=== PATIENT | female | born 1930 | race Caucasian/White ===

== ENCOUNTER 2016-09-26 10:38 | Inpatient (IN) | payer OTHER ==
[~2016-09-26] VITALS: Ht 152.4 cm; Wt 49.9 kg
[~2016-09-26 10:38] MED LIST: ADVAIR 100/501 DISK IH; ADVIL200 MG PO; ASCORBIC ACID500 M3 PO; CALTRATE 600 +1 EAC1 PO; CALTRATE 6001 TABLE1 PO; CARDIZEM CD240 MG PO; DUONEB 2.5-0.5 M3 ML IH; ELAVIL10 MG PO; ELIQUIS2.5 MG PO; FOSAMAX70 MG PO; HYDROCHLOROTH12.5 M3 PO; HYDROCHLOROTHIA25 MG PO; HYZAAR 100-21 TABLET PO; LEVETIRACE100 MG/1 M PO; LEVETIRACETAM250 MG PO; LO-DOSE ASPIRIN81 M1 PO; MEVACOR10 MG PO; MEVACOR20 MG PO; MOMETASONE FURO45 GM TP; NORVASC5 MG PO; PLAVIX75 MG PO; PREDNISONE20 MG PO; SYNTHROID75 MCG PO; TENORMIN100 MG PO; VITAMIN D31000 UNI2 PO; XARELTO15 MG PO; ZANTAC150 MG PO; ZITHROMAX Z-PA250 MG PO; ZYLOPRIM100 MG PO
[2016-09-26 12:42] LABS: HEMATOCRIT 34.7 % (36.0-46.0); MCH 29.5 PG (29.0-34.0); MCV 92.3 FL (83-99); MEAN PLAT.VOLUME 10.4 uM^3 (9.5-12.4); PLATELET COUNT 223 K/uL (156-360); RBC DIS.WIDTH-CV 14.8 % (11.8-14.6); RBC DIS.WIDTH-SD 49.7 % (39-53); RED BLOOD COUNT 3.76 M/uL (3.80-5.20); WHITE BLOOD COUNT 13.8 K/uL (4.1-10.2)
[2016-09-26 12:51] LABS: CHLORIDE 99 mEq/L (99-109); POTASSIUM 4.5 mEq/L (3.7-5.4); SODIUM 139 mEq/L (136-147)
[2016-09-26 12:53] LABS: GLUCOSE 113 mg/dL (70-99)
[2016-09-26 12:54] LABS: ANION GAP 11 MEQ/L (2-14)
[2016-09-26 12:56] LABS: GFR ESTIMATE (CALCULATED) 33 mL/min/
[2016-09-26 12:57] LABS: UREA NITROGEN (BUN) 26 mg/dL (9-23)
[2016-09-26 15:08] LABS: TROP-I INTERPRETATION NEGATIVE; TROPONIN-I 0.02 ng/mL (0.0-0.30)
[2016-09-26 17:13] VITALS: BP 184/75
[2016-09-26 19:02] LABS: TROP-I INTERPRETATION NEGATIVE; TROPONIN-I 0.02 ng/mL (0.0-0.30)
[2016-09-26 20:00] VITALS: BP 132/57
[2016-09-26 23:52] VITALS: BP 178/78
[2016-09-27 01:30] LABS: TROP-I INTERPRETATION NEGATIVE; TROPONIN-I < 0.01 ng/mL (0.0-0.30)
[2016-09-27 03:45] VITALS: BP 197/87
[2016-09-27 06:00] VITALS: BP 180/86
[2016-09-27 06:59] LABS: TROP-I INTERPRETATION NEGATIVE; TROPONIN-I 0.01 ng/mL (0.0-0.30)
[2016-09-27 09:57] LABS: HEMATOCRIT 32.4 % (36.0-46.0); MCH 30.1 PG (29.0-34.0); MEAN PLAT.VOLUME 11.5 uM^3 (9.5-12.4); PLATELET COUNT 211 K/uL (156-360); RBC DIS.WIDTH-SD 49.7 % (39-53); RED BLOOD COUNT 3.56 M/uL (3.80-5.20); WHITE BLOOD COUNT 8.8 K/uL (4.1-10.2)
[2016-09-27 10:19] LABS: ANION GAP 13 MEQ/L (2-14); CHLORIDE 98 MEQ/L (99-109); SAMPLE HEMOLYSIS CHECK 0; SAMPLE ICTERIC CHECK 0; SAMPLE LIPEMIA CHECK 0; SODIUM 135 MEQ/L (136-147)
[2016-09-27 10:24] LABS: GFR ESTIMATE (CALCULATED) 41 mL/min/; GLUCOSE 160 mg/dL (70-99); UREA NITROGEN (BUN) 28 mg/dL (9-23)
[2016-09-27] MEDS ORDERED: HYDROCHLOROTHIA25 MG PO (11:09)
[2016-09-27] MEDS ORDERED: KENALOG,ARISTOC80 GM TP (11:10)
[2016-09-27] MEDS ORDERED: DILTIAZEM 24HR120 MG PO (11:15)
[2016-09-27 11:54] VITALS: BP 172/79
[2016-09-27 15:44] VITALS: BP 141/69
[2016-09-27 19:00] VITALS: BP 161/73
[2016-09-27 23:34] VITALS: BP 165/70
[2016-09-28 06:48] LABS: EOSINOPHIL (%) 0 % (0-5); HEMATOCRIT 29.8 % (36.0-46.0); IMMATURE GRANULOCYTE (%) 0.9 % (0.0-0.7); IMMATURE GRANULOCYTE COUNT 0.1 K/uL; INSTRUMENT ABS NEUTROPHIL CT 9.6 K/uL; LYMPHOCYTE COUNT 0.7 K/uL (1.0-2.8); MCH 31.1 PG (29.0-34.0); MCHC 34.2 G/DL (30.0-36.0); MCV 90.9 FL (83-99); MEAN PLAT.VOLUME 10.9 uM^3 (9.5-12.4); MONOCYTE (%) 2.6 % (3-12); MONOCYTE COUNT 0.3 K/uL (0-0.8); NEUTROPHIL (%) 89.8 % (45-76); NEUTROPHIL COUNT 9.6 K/uL (1.8-6.4); PLATELET COUNT 208 K/uL (156-360); RBC DIS.WIDTH-CV 14.6 % (11.8-14.6); RBC DIS.WIDTH-SD 48.6 % (39-53); RED BLOOD COUNT 3.28 M/uL (3.80-5.20); WHITE BLOOD COUNT 10.7 K/uL (4.1-10.2)
[2016-09-28 07:09] LABS: ANION GAP 10 MEQ/L (2-14); CHLORIDE 99 MEQ/L (99-109); GFR ESTIMATE (CALCULATED) 35 mL/min/; GLUCOSE 139 mg/dL (70-99); POTASSIUM 4.4 MEQ/L (3.7-5.4); SAMPLE HEMOLYSIS CHECK 0; SAMPLE ICTERIC CHECK 0; SAMPLE LIPEMIA CHECK 0; SODIUM 138 MEQ/L (136-147); UREA NITROGEN (BUN) 38 mg/dL (9-23)
[2016-09-28 08:22] VITALS: BP 168/74
[2016-09-28 10:32] VITALS: BP 145/74
[2016-09-28 11:52] VITALS: BP 148/73
[2016-09-28 16:16] VITALS: BP 146/67
[2016-09-28 21:20] VITALS: BP 141/67
[2016-09-29] VITALS (7 sets, daily range): BP systolic 139–174; BP diastolic 50–72
[2016-09-29 00:28] LABS: ADD MIUA? YES; BILIRUBIN NEGATIVE; BLOOD SMALL; COLOR YELLOW ((YELLOW)); GLUCOSE (STRIP) NEGATIVE; KETONES NEGATIVE; LEUKOCYTES NEGATIVE; NITRITE NEGATIVE; PROTEIN (STRIP) 30; SPECIFIC GRAVITY 1.012 (1.000-1.030); UROBILINOGEN 0.2 MG/DL (0.2-1.0)
[2016-09-29 00:31] LABS: BACTERIA NONE SEEN /HPF; EPITHELIAL CELLS RARE /HPF; MUCUS TRACE /LPF; RED BLOOD CELLS 0-5 /HPF (0-5); UCUL ADDED? NO; WHITE BLOOD CELLS 0-5 /HPF (0-5)
[2016-09-29 06:23] LABS: EOSINOPHIL (%) 0 % (0-5); HEMATOCRIT 29.8 % (36.0-46.0); IMMATURE GRANULOCYTE (%) 1.1 % (0.0-0.7); IMMATURE GRANULOCYTE COUNT 0.1 K/uL; INSTRUMENT ABS NEUTROPHIL CT 9.9 K/uL; LYMPHOCYTE COUNT 0.6 K/uL (1.0-2.8); MCH 30.3 PG (29.0-34.0); MCHC 33.2 G/DL (30.0-36.0); MCV 91.1 FL (83-99); MEAN PLAT.VOLUME 10.8 uM^3 (9.5-12.4); MONOCYTE (%) 3.2 % (3-12); MONOCYTE COUNT 0.4 K/uL (0-0.8); NEUTROPHIL (%) 90.1 % (45-76); NEUTROPHIL COUNT 9.9 K/uL (1.8-6.4); NRBC (%) 0.3 /100 WBC (0-0); PLATELET COUNT 227 K/uL (156-360); RBC DIS.WIDTH-CV 14.9 % (11.8-14.6); RBC DIS.WIDTH-SD 49.4 % (39-53); RED BLOOD COUNT 3.27 M/uL (3.80-5.20)
[2016-09-29 06:49] LABS: ANION GAP 10 MEQ/L (2-14); CHLORIDE 99 MEQ/L (99-109); GFR ESTIMATE (CALCULATED) 33 mL/min/; GLUCOSE 127 mg/dL (70-99); SAMPLE HEMOLYSIS CHECK 0; SAMPLE ICTERIC CHECK 0; SAMPLE LIPEMIA CHECK 0; SODIUM 138 MEQ/L (136-147); UREA NITROGEN (BUN) 41 mg/dL (9-23)
[2016-09-29 13:49] LABS: ANION GAP 12 MEQ/L (2-14); CHLORIDE 101 MEQ/L (99-109); GFR ESTIMATE (CALCULATED) 38 mL/min/; GLUCOSE 156 mg/dL (70-99); POTASSIUM 3.7 MEQ/L (3.7-5.4); SAMPLE HEMOLYSIS CHECK 0; SAMPLE ICTERIC CHECK 0; SAMPLE LIPEMIA CHECK 0; SODIUM 137 MEQ/L (136-147); UREA NITROGEN (BUN) 46 mg/dL (9-23)
[2016-09-30 03:45] VITALS: BP 138/63
[2016-09-30 05:56] LABS: EOSINOPHIL (%) 0 % (0-5); HEMATOCRIT 27.8 % (36.0-46.0); IMMATURE GRANULOCYTE (%) 1.9 % (0.0-0.7); IMMATURE GRANULOCYTE COUNT 0.2 K/uL; INSTRUMENT ABS NEUTROPHIL CT 6.9 K/uL; LYMPHOCYTE COUNT 0.6 K/uL (1.0-2.8); MCH 30.8 PG (29.0-34.0); MCHC 34.2 G/DL (30.0-36.0); MCV 90.3 FL (83-99); MEAN PLAT.VOLUME 10.7 uM^3 (9.5-12.4); MONOCYTE (%) 2.9 % (3-12); MONOCYTE COUNT 0.2 K/uL (0-0.8); NEUTROPHIL COUNT 6.9 K/uL (1.8-6.4); PLATELET COUNT 190 K/uL (156-360); RBC DIS.WIDTH-CV 14.6 % (11.8-14.6); RBC DIS.WIDTH-SD 47.8 % (39-53); RED BLOOD COUNT 3.08 M/uL (3.80-5.20); WHITE BLOOD COUNT 7.9 K/uL (4.1-10.2)
[2016-09-30 06:17] LABS: ANION GAP 9 MEQ/L (2-14); CHLORIDE 101 MEQ/L (99-109); GFR ESTIMATE (CALCULATED) 38 mL/min/; GLUCOSE 143 mg/dL (70-99); POTASSIUM 3.4 MEQ/L (3.7-5.4); SAMPLE HEMOLYSIS CHECK 0; SAMPLE ICTERIC CHECK 0; SAMPLE LIPEMIA CHECK 0; SODIUM 137 MEQ/L (136-147); UREA NITROGEN (BUN) 46 mg/dL (9-23)
[2016-09-30 07:22] VITALS: BP 170/74
[2016-09-30 11:00] VITALS: BP 177/72
[2016-09-30 11:33] VITALS: BP 134/72
[2016-09-30] MEDS ORDERED: LEVETIRACETAM250 MG PO (14:31)
[2016-09-30] MEDS ORDERED: VENTOLIN HFA18 GM IH (14:31)
[2016-09-30] MEDS ORDERED: DOCUSATE SODIU100 MG PO (14:32)
[2016-09-30] MEDS ORDERED: PREDNISONE20 MG PO (14:33)
== END 2016-09-30 16:28 | disposition home or self-care (01) | DRG 191 ==
LOC: EME 10:38 → EDOF 15:56 → 5WEST 15:56 → ENRESERV 16:01 → 5WEST 17:06 → 5SOUTH 09-28 14:17 → 5WEST 09-28 14:17 → ENRESERV 09-28 14:19 → 5SOUTH 09-28 20:40
PROVIDERS: Emergency Medicine; Hospitalist; Internal Medicine
DX: J44.1 Chronic obstructive pulmonary disease with (acute) exacerbation (principal); N17.9 Acute kidney failure, unspecified; I27.2 Other secondary pulmonary hypertension; I48.0 Paroxysmal atrial fibrillation; G40.909 Epilepsy, unspecified, not intractable, without status epilepticus; E83.52 Hypercalcemia; E78.5 Hyperlipidemia, unspecified; E03.9 Hypothyroidism, unspecified; M10.9 Gout, unspecified; D64.9 Anemia, unspecified; Z66 Do not resuscitate; R07.89 Other chest pain; I12.9 Hypertensive chronic kidney disease with stage 1 through stage 4 chronic kidney disease, or unspecified chronic kidney disease; N18.3 Chronic kidney disease, stage 3 (moderate); I35.0 Nonrheumatic aortic (valve) stenosis; R01.1 Cardiac murmur, unspecified; R60.0 Localized edema; I16.0 Hypertensive urgency; D72.829 Elevated white blood cell count, unspecified; G89.29 Other chronic pain; M79.601 Pain in right arm; Z79.01 Long term (current) use of anticoagulants; M81.0 Age-related osteoporosis without current pathological fracture; R40.0 Somnolence
CPT/HCPCS: 70551; 71020; 80048; 80048 91; 81003; 83880; 84484; 85025; 85027; 93005; 93306; 94010; 94640; 94640 76; 94799; 95819; 97530 GO; 99202; 99281; 99285; G0378; J0360; J1953; J7030; J7050; J7512

== ENCOUNTER 2016-10-11 12:59 | Inpatient (IN) | payer OTHER ==
[~2016-10-11] VITALS: Ht 152.4 cm; Wt 53.7 kg
[~2016-10-11 12:59] MED LIST changes: +CALCIUM600 M1 PO; -CALTRATE 600 +1 EAC1 PO; +DILTIAZEM 24HR120 MG PO; +DOCUSATE SODIU100 MG PO; +KENALOG,ARISTOC80 GM TP; +VENTOLIN HFA18 GM IH
[2016-10-11 13:50] LABS: MCH 29.4 PG (29.0-34.0); MCHC 33.2 G/DL (30.0-36.0); MCV 88.6 FL (83-99); RBC DIS.WIDTH-CV 14.5 % (11.8-14.6); RBC DIS.WIDTH-SD 46.5 % (39-53); RED BLOOD COUNT 3.16 M/uL (3.80-5.20); WHITE BLOOD COUNT 14.5 K/uL (4.1-10.2)
[2016-10-11 13:56] LABS: CHLORIDE 92 mEq/L (99-109); POTASSIUM 3.5 mEq/L (3.7-5.4); SODIUM 130 mEq/L (136-147)
[2016-10-11 13:58] LABS: GLUCOSE 159 mg/dL (70-99)
[2016-10-11 14:00] LABS: ANION GAP 14 MEQ/L (2-14)
[2016-10-11 14:02] LABS: GFR ESTIMATE (CALCULATED) 21 mL/min/
[2016-10-11 14:03] LABS: UREA NITROGEN (BUN) 31 mg/dL (9-23)
[2016-10-11 14:43] LABS: EOSINOPHIL (%) 0.1 % (0-5); IMMATURE GRANULOCYTE COUNT 0.2 K/uL; INSTRUMENT ABS NEUTROPHIL CT 12.4 K/uL; LYMPHOCYTE COUNT 0.7 K/uL (1.0-2.8); MEAN PLAT.VOLUME 10.9 uM^3 (9.5-12.4); MONOCYTE (%) 8.4 % (3-12); MONOCYTE COUNT 1.2 K/uL (0-0.8); NEUTROPHIL (%) 85.9 % (45-76); NEUTROPHIL COUNT 12.4 K/uL (1.8-6.4); PLAT.SUFFICIENCY DECREASED
[2016-10-11 14:44] LABS: PLATELET COUNT 125 K/uL (156-360)
[2016-10-11] MEDS ORDERED: KEPPRA250 MG PO (17:10)
[2016-10-11] MEDS ORDERED: TRAZODONE HCL50 MG PO (17:11)
[2016-10-11] MEDS ORDERED: [UNRECOGNIZED DRUG - OTHER] TP (17:30)
[2016-10-11 18:21] VITALS: BP 141/66
[2016-10-11 18:32] LABS: ADD MIUA? YES; BILIRUBIN NEGATIVE; BLOOD SMALL; COLOR YELLOW ((YELLOW)); GLUCOSE (STRIP) NEGATIVE; KETONES NEGATIVE; LEUKOCYTES LARGE; NITRITE NEGATIVE; PROTEIN (STRIP) 100; UROBILINOGEN 0.2 MG/DL (0.2-1.0)
[2016-10-11 18:43] LABS: BACTERIA RARE /HPF; EPITHELIAL CELLS 1+ /HPF; MUCUS TRACE /LPF; RED BLOOD CELLS 0-5 /HPF (0-5); UCUL ADDED? YES; WHITE BLOOD CELLS 30-40 /HPF (0-5)
[2016-10-12] VITALS: BP 153/64
[2016-10-12 04:00] VITALS: BP 149/71
[2016-10-12 07:06] LABS: HEMATOCRIT 24.8 % (36.0-46.0); MCH 30.3 PG (29.0-34.0); MCHC 33.5 G/DL (30.0-36.0); MCV 90.5 FL (83-99); MEAN PLAT.VOLUME 11.4 uM^3 (9.5-12.4); PLATELET COUNT 111 K/uL (156-360); RBC DIS.WIDTH-CV 14.8 % (11.8-14.6); RBC DIS.WIDTH-SD 48.4 % (39-53); RED BLOOD COUNT 2.74 M/uL (3.80-5.20); WHITE BLOOD COUNT 11.2 K/uL (4.1-10.2)
[2016-10-12 07:26] LABS: ALKALINE PHOSPHATASE 61 IU/L (3-129); ANION GAP 12 MEQ/L (2-14); CHLORIDE 98 MEQ/L (99-109); POTASSIUM 3.7 MEQ/L (3.7-5.4); SAMPLE HEMOLYSIS CHECK 0; SAMPLE ICTERIC CHECK 0; SAMPLE LIPEMIA CHECK 0; SODIUM 136 MEQ/L (136-147); TOTAL BILIRUBIN 0.6 MG/DL (0.0-1.0); UREA NITROGEN (BUN) 29 mg/dL (9-23)
[2016-10-12 07:29] LABS: GFR ESTIMATE (CALCULATED) 28 mL/min/; GLUCOSE 111 mg/dL (70-99)
[2016-10-12 07:49] VITALS: BP 147/70
[2016-10-12 10:46] VITALS: BP 153/58
[2016-10-12 16:05] VITALS: BP 153/65
[2016-10-12 19:34] VITALS: BP 141/74
[2016-10-13] VITALS (7 sets, daily range): BP systolic 134–182; BP diastolic 61–81
[2016-10-13 06:35] LABS: EOSINOPHIL (%) 1.2 % (0-5); EOSINOPHIL COUNT 0.1 K/uL (0-0.3); HEMATOCRIT 22.7 % (36.0-46.0); IMMATURE GRANULOCYTE (%) 0.9 % (0.0-0.7); IMMATURE GRANULOCYTE COUNT 0.1 K/uL; INSTRUMENT ABS NEUTROPHIL CT 8.7 K/uL; LYMPHOCYTE COUNT 0.5 K/uL (1.0-2.8); MCH 29.5 PG (29.0-34.0); MCHC 32.6 G/DL (30.0-36.0); MCV 90.4 FL (83-99); MEAN PLAT.VOLUME 11.3 uM^3 (9.5-12.4); MONOCYTE (%) 7.7 % (3-12); MONOCYTE COUNT 0.8 K/uL (0-0.8); NEUTROPHIL (%) 85.4 % (45-76); NEUTROPHIL COUNT 8.7 K/uL (1.8-6.4); PLATELET COUNT 109 K/uL (156-360); RBC DIS.WIDTH-CV 14.8 % (11.8-14.6); RBC DIS.WIDTH-SD 48.9 % (39-53); RED BLOOD COUNT 2.51 M/uL (3.80-5.20); WHITE BLOOD COUNT 10.2 K/uL (4.1-10.2)
[2016-10-13 06:54] LABS: ANION GAP 11 MEQ/L (2-14); CHLORIDE 101 MEQ/L (99-109); GFR ESTIMATE (CALCULATED) 30 mL/min/; GLUCOSE 106 mg/dL (70-99); POTASSIUM 3.7 MEQ/L (3.7-5.4); SAMPLE HEMOLYSIS CHECK 0; SAMPLE ICTERIC CHECK 0; SAMPLE LIPEMIA CHECK 0; SODIUM 137 MEQ/L (136-147); UREA NITROGEN (BUN) 28 mg/dL (9-23)
[2016-10-13 09:50] LABS: IRON 16 MCG/DL (35-150)
[2016-10-13 12:40] LABS: HEMATOCRIT 27.4 % (36.0-46.0)
[2016-10-13 21:29] LABS: HEMATOCRIT 24.4 % (36.0-46.0); MCV 91.4 FL (83-99)
[2016-10-14 03:36] VITALS: BP 150/67
[2016-10-14 06:05] LABS: HEMATOCRIT 23.2 % (36.0-46.0); MCH 30.1 PG (29.0-34.0); MCHC 33.6 G/DL (30.0-36.0); MCV 89.6 FL (83-99); PLATELET COUNT 123 K/uL (156-360); RBC DIS.WIDTH-CV 14.7 % (11.8-14.6); RBC DIS.WIDTH-SD 48.1 % (39-53); RED BLOOD COUNT 2.59 M/uL (3.80-5.20); WHITE BLOOD COUNT 10.2 K/uL (4.1-10.2)
[2016-10-14 06:26] LABS: ANION GAP 11 MEQ/L (2-14); CHLORIDE 101 MEQ/L (99-109); GFR ESTIMATE (CALCULATED) 30 mL/min/; GLUCOSE 109 mg/dL (70-99); POTASSIUM 4.1 MEQ/L (3.7-5.4); SAMPLE HEMOLYSIS CHECK 0; SAMPLE ICTERIC CHECK 0; SAMPLE LIPEMIA CHECK 0; SODIUM 136 MEQ/L (136-147); UREA NITROGEN (BUN) 27 mg/dL (9-23)
[2016-10-14 07:56] VITALS: BP 144/78
[2016-10-14] MEDS ORDERED: CEFDINIR300 MG PO (11:10)
[2016-10-14] MEDS ORDERED: COLACE100 MG PO (11:10)
[2016-10-14] MEDS ORDERED: FEOSOL325 MG PO (11:10)
[2016-10-14] MEDS ORDERED: VITAMIN B122500 MCG PO (11:17)
== END 2016-10-14 14:21 | disposition home or self-care (01) | DRG 683 ==
LOC: EME 12:59 → EDOF 16:18 → 5SOUTH 16:18 → ENRESERV 16:31 → 5SOUTH 18:10 → ENPENDDIS 10-14 → 5SOUTH 10-14 14:21
PROVIDERS: Hospitalist
DX: N17.9 Acute kidney failure, unspecified (principal); N39.0 Urinary tract infection, site not specified; N18.9 Chronic kidney disease, unspecified; I27.2 Other secondary pulmonary hypertension; J81.1 Chronic pulmonary edema; J44.9 Chronic obstructive pulmonary disease, unspecified; R56.9 Unspecified convulsions; E86.0 Dehydration; J90 Pleural effusion, not elsewhere classified; I48.0 Paroxysmal atrial fibrillation; E03.9 Hypothyroidism, unspecified; E78.5 Hyperlipidemia, unspecified; N28.1 Cyst of kidney, acquired; J98.11 Atelectasis; D63.1 Anemia in chronic kidney disease; I25.10 Atherosclerotic heart disease of native coronary artery without angina pectoris; I12.9 Hypertensive chronic kidney disease with stage 1 through stage 4 chronic kidney disease, or unspecified chronic kidney disease; M10.9 Gout, unspecified; M81.0 Age-related osteoporosis without current pathological fracture; K21.9 Gastro-esophageal reflux disease without esophagitis; Z66 Do not resuscitate; G89.29 Other chronic pain; I25.2 Old myocardial infarction; Z72.0 Tobacco use; Z79.01 Long term (current) use of anticoagulants; Z79.899 Other long term (current) drug therapy
CPT/HCPCS: 71010; 71020; 74176; 80048; 80053; 80069; 81003; 82040; 82272; 82607; 82746; 83540; 83605; 83880; 84466; 85014; 85018; 85025; 85027; 87040; 87086; 94640 76; 99202; 99281; 99285; J0696; J7030; J7050

== ENCOUNTER 2017-01-28 17:26 | Inpatient (IN) | payer OTHER ==
[~2017-01-28] VITALS: Ht 157.5 cm; Wt 54.2 kg
[~2017-01-28 17:26] MED LIST changes: +CEFDINIR300 MG PO; +COLACE100 MG PO; +FEOSOL325 MG PO; +KEPPRA250 MG PO; +TRAZODONE HCL50 MG PO; +VITAMIN B122500 MCG PO; +[UNRECOGNIZED DRUG - OTHER] TP
[2017-01-28 19:17] LABS: EOSINOPHIL (%) 0.9 % (0-5); EOSINOPHIL COUNT 0.1 K/uL (0-0.3); HEMATOCRIT 36.2 % (36.0-46.0); IMMATURE GRANULOCYTE (%) 0.5 % (0.0-0.7); IMMATURE GRANULOCYTE COUNT 0.1 K/uL; INSTRUMENT ABS NEUTROPHIL CT 7.9 K/uL; MCHC 33.7 G/DL (30.0-36.0); MCV 86.2 FL (83-99); MEAN PLAT.VOLUME 10.6 uM^3 (9.5-12.4); MONOCYTE (%) 5.1 % (3-12); MONOCYTE COUNT 0.5 K/uL (0-0.8); NEUTROPHIL (%) 82.9 % (45-76); NEUTROPHIL COUNT 7.9 K/uL (1.8-6.4); PLATELET COUNT 166 K/uL (156-360); RBC DIS.WIDTH-CV 13.8 % (11.8-14.6); RBC DIS.WIDTH-SD 43.1 % (39-53); WHITE BLOOD COUNT 9.6 K/uL (4.1-10.2)
[2017-01-28 19:28] LABS: CHLORIDE 89 mEq/L (99-109); POTASSIUM 3.3 mEq/L (3.7-5.4); SODIUM 130 mEq/L (136-147)
[2017-01-28 19:29] LABS: MAGNESIUM 1.2 mg/dL (1.3-2.7)
[2017-01-28 19:30] LABS: GLUCOSE 170 mg/dL (70-99)
[2017-01-28 19:32] LABS: ANION GAP 12 MEQ/L (2-14)
[2017-01-28 19:34] LABS: GFR ESTIMATE (CALCULATED) 35 mL/min/
[2017-01-28 19:35] LABS: UREA NITROGEN (BUN) 23 mg/dL (9-23)
[2017-01-28 19:38] LABS: TROP-I INTERPRETATION NEGATIVE; TROPONIN-I 0.02 ng/mL (0.0-0.30)
[2017-01-28] MEDS ORDERED: HYDROCHLOROTHIA25 MG PO (21:55)
[2017-01-28] MEDS ORDERED: LEVOTHYROXINE88 MCG PO (21:55)
[2017-01-28] MEDS ORDERED: ATENOLOL100 MG PO (21:56)
[2017-01-28] MEDS ORDERED: AMITRIPTYLINE H10 MG PO (21:56)
[2017-01-28] MEDS ORDERED: ALLOPURINOL100 MG PO (21:57)
[2017-01-28] MEDS ORDERED: LOVASTATIN20 MG PO (21:57)
[2017-01-28] MEDS ORDERED: CARDIZEM CD,CA240 MG PO (21:59)
[2017-01-28] MEDS ORDERED: CARDIZEM CD120 MG PO (22:03)
[2017-01-28 23:13] VITALS: BP 180/80
[2017-01-29 04:12] VITALS: BP 179/79
[2017-01-29 05:30] LABS: HEMATOCRIT 33.1 % (36.0-46.0); MCHC 33.8 G/DL (30.0-36.0); MCV 85.8 FL (83-99); MEAN PLAT.VOLUME 10.6 uM^3 (9.5-12.4); PLATELET COUNT 160 K/uL (156-360); RBC DIS.WIDTH-CV 13.8 % (11.8-14.6); RED BLOOD COUNT 3.86 M/uL (3.80-5.20); WHITE BLOOD COUNT 4.5 K/uL (4.1-10.2)
[2017-01-29 06:04] LABS: ALKALINE PHOSPHATASE 76 IU/L (3-129); ANION GAP 10 MEQ/L (2-14); CHLORIDE 92 MEQ/L (99-109); GFR ESTIMATE (CALCULATED) 41 mL/min/; GLUCOSE 168 mg/dL (70-99); POTASSIUM 3.9 MEQ/L (3.7-5.4); SAMPLE HEMOLYSIS CHECK 0; SAMPLE ICTERIC CHECK 0; SAMPLE LIPEMIA CHECK 0; SODIUM 133 MEQ/L (136-147); TOTAL BILIRUBIN 0.4 MG/DL (0.0-1.0); UREA NITROGEN (BUN) 20 mg/dL (9-23)
[2017-01-29 08:48] VITALS: BP 143/65
[2017-01-29 11:56] VITALS: BP 167/71
[2017-01-29 16:30] VITALS: BP 158/72
[2017-01-29 19:39] VITALS: BP 149/66
[2017-01-29 22:44] VITALS: BP 134/59
[2017-01-30 04:41] VITALS: BP 144/65
[2017-01-30 08:35] VITALS: BP 138/65
[2017-01-30 12:10] VITALS: BP 143/65
[2017-01-30 16:40] VITALS: BP 148/67
[2017-01-30 20:59] VITALS: BP 154/67
[2017-01-30 23:18] VITALS: BP 144/65
[2017-01-31 04:01] VITALS: BP 153/65
[2017-01-31 06:58] VITALS: BP 151/68
[2017-01-31 07:05] LABS: EOSINOPHIL (%) 0 % (0-5); HEMATOCRIT 30.4 % (36.0-46.0); IMMATURE GRANULOCYTE (%) 1.6 % (0.0-0.7); IMMATURE GRANULOCYTE COUNT 0.1 K/uL; INSTRUMENT ABS NEUTROPHIL CT 7.7 K/uL; LYMPHOCYTE COUNT 0.5 K/uL (1.0-2.8); MCH 28.7 PG (29.0-34.0); MCHC 32.9 G/DL (30.0-36.0); MCV 87.4 FL (83-99); MEAN PLAT.VOLUME 10.7 uM^3 (9.5-12.4); MONOCYTE (%) 2.7 % (3-12); MONOCYTE COUNT 0.2 K/uL (0-0.8); NEUTROPHIL (%) 89.8 % (45-76); NEUTROPHIL COUNT 7.7 K/uL (1.8-6.4); PLATELET COUNT 179 K/uL (156-360); RBC DIS.WIDTH-CV 14.2 % (11.8-14.6); RBC DIS.WIDTH-SD 45.1 % (39-53); RED BLOOD COUNT 3.48 M/uL (3.80-5.20); WHITE BLOOD COUNT 8.6 K/uL (4.1-10.2)
[2017-01-31 07:29] LABS: ANION GAP 10 MEQ/L (2-14); CHLORIDE 95 MEQ/L (99-109); GFR ESTIMATE (CALCULATED) 38 mL/min/; GLUCOSE 165 mg/dL (70-99); MAGNESIUM 1.9 mg/dl (1.3-2.7); POTASSIUM 3.3 MEQ/L (3.7-5.4); SAMPLE HEMOLYSIS CHECK 0; SAMPLE ICTERIC CHECK 0; SAMPLE LIPEMIA CHECK 0; SODIUM 137 MEQ/L (136-147)
[2017-01-31 07:30] LABS: ALKALINE PHOSPHATASE 57 IU/L (3-129); ANION GAP 10 MEQ/L (2-14); CHLORIDE 96 MEQ/L (99-109); GFR ESTIMATE (CALCULATED) 38 mL/min/; GLUCOSE 166 mg/dL (70-99); POTASSIUM 3.4 MEQ/L (3.7-5.4); SAMPLE HEMOLYSIS CHECK 0; SAMPLE ICTERIC CHECK 0; SAMPLE LIPEMIA CHECK 0; SODIUM 137 MEQ/L (136-147)
[2017-01-31 07:33] LABS: TOTAL BILIRUBIN 0.5 MG/DL (0.0-1.0); UREA NITROGEN (BUN) 33 mg/dL (9-23)
[2017-01-31 10:45] VITALS: BP 162/70
[2017-01-31] MEDS ORDERED: AUGMENTIN500 MG PO (13:33)
[2017-01-31] MEDS ORDERED: PREDNISONE10 MG PO (13:33)
[2017-01-31 15:40] VITALS: BP 146/65
[2017-02-10] MEDS ORDERED: ALLOPURINOL100 MG PO (14:16)
[2017-02-10] MEDS ORDERED: TIROSINT75 MCG PO (14:18)
[2017-02-10] MEDS ORDERED: VITAMIN C500 M6 PO (14:20)
[2017-02-10] MEDS ORDERED: VITAMIN D31000 UNIT PO (14:20)
[2017-02-10] MEDS ORDERED: AMITRIPTYLINE H10 MG PO (14:21)
[2017-02-10] MEDS ORDERED: SUPER CALCIUM600 MG PO (18:55)
[2017-02-10] MEDS ORDERED: CARDIZEM CD,CA240 MG PO (21:27)
[2017-02-10] MEDS ORDERED: DILTIAZEM 24HR120 MG PO (21:28)
== END 2017-01-31 16:00 | disposition home or self-care (01) | DRG 178 ==
LOC: EME 17:26 → EDOF 21:31 → ENRESERV 21:35 → 5WEST 23:04 → 3EAST 23:48 → 5WEST 23:48 → ENRESERV 23:50 → 3EAST 01-29 16:10 → ENPENDDIS 01-31 → 3EAST 01-31 16:00
PROVIDERS: Hospitalist; Physician Assistant; Physician Assistant Medical
DX: J69.0 Pneumonitis due to inhalation of food and vomit (principal); S22.43XA Multiple fractures of ribs, bilateral, initial encounter for closed fracture; W01.0XXA Fall on same level from slipping, tripping and stumbling without subsequent striking against object, initial encounter; Y92.009 Unspecified place in unspecified non-institutional (private) residence as the place of occurrence of the external cause; J44.1 Chronic obstructive pulmonary disease with (acute) exacerbation; E87.1 Hypo-osmolality and hyponatremia; E86.1 Hypovolemia; E83.42 Hypomagnesemia; E87.6 Hypokalemia; I08.3 Combined rheumatic disorders of mitral, aortic and tricuspid valves; I27.20 Pulmonary hypertension, unspecified; I48.0 Paroxysmal atrial fibrillation; R91.1 Solitary pulmonary nodule; I12.9 Hypertensive chronic kidney disease with stage 1 through stage 4 chronic kidney disease, or unspecified chronic kidney disease; N18.3 Chronic kidney disease, stage 3 (moderate); M81.0 Age-related osteoporosis without current pathological fracture; K59.00 Constipation, unspecified; M10.9 Gout, unspecified; E03.9 Hypothyroidism, unspecified; E78.5 Hyperlipidemia, unspecified; F41.9 Anxiety disorder, unspecified; M54.2 Cervicalgia; R11.2 Nausea with vomiting, unspecified; G40.909 Epilepsy, unspecified, not intractable, without status epilepticus; R29.6 Repeated falls; Z66 Do not resuscitate; Z77.22 Contact with and (suspected) exposure to environmental tobacco smoke (acute) (chronic); Z79.01 Long term (current) use of anticoagulants; Z80.3 Family history of malignant neoplasm of breast; Z82.49 Family history of ischemic heart disease and other diseases of the circulatory system; Z85.828 Personal history of other malignant neoplasm of skin; Z91.81 History of falling; Z90.710 Acquired absence of both cervix and uterus
CPT/HCPCS: 70450; 71010; 71020; 71250; 72125; 74020; 80048; 80053; 81003; 83605; 83735; 84484; 85025; 85027; 87040; 87070; 87086; 87205; 92610 GN; 93005; 94640; 94640 76; 94667; 94668; 94760; 94799; 99202; 99281; 99285; J2405; J2543; J2920; J2930; J3475; J7030; J7040; J7050

== ENCOUNTER 2017-02-10 13:29 | Inpatient (IN) | payer OTHER ==
[~2017-02-10] VITALS: Ht 149.9 cm; Wt 52.8 kg
[~2017-02-10 13:29] MED LIST changes: +ALLOPURINOL100 MG PO; +AMITRIPTYLINE H10 MG PO; +ATENOLOL100 MG PO; +AUGMENTIN500 MG PO; +CARDIZEM CD,CA240 MG PO; +CARDIZEM CD120 MG PO; +LEVOTHYROXINE88 MCG PO; +LOVASTATIN20 MG PO; +PREDNISONE10 MG PO
[2017-02-10 14:15] LABS: BASOPHIL (%) 0.2 % (0-1); BASOPHIL COUNT 0.1 K/uL (0-0.1); EOSINOPHIL (%) 0.4 % (0-5); EOSINOPHIL COUNT 0.1 K/uL (0-0.3); HEMATOCRIT 34.8 % (36.0-46.0); HEMOGLOBIN 11.9 G/DL (11.9-15.5); IMMATURE GRANULOCYTE (%) 1.5 % (0.0-0.7); LYMPHOCYTE (%) 6.6 % (15-42); LYMPHOCYTE COUNT 1.9 K/uL (1.0-2.8); MCH 29.9 PG (29.0-34.0); MCHC 34.2 G/DL (30.0-36.0); MCV 87.4 FL (83-99); MONOCYTE (%) 6.3 % (3-12); MONOCYTE COUNT 1.8 K/uL (0-0.8); NEUTROPHIL COUNT 24.3 K/uL (1.8-6.4); PLATELET COUNT 176 K/uL (156-360); RBC DIS.WIDTH-CV 14.8 % (11.8-14.6); RBC DIS.WIDTH-SD 47.6 % (39-53); RED BLOOD COUNT 3.98 M/uL (3.80-5.20); WHITE BLOOD COUNT 28.6 K/uL (4.1-10.2)
[2017-02-10] MEDS ORDERED: ADVAIR 100/501 DISK IH (14:16)
[2017-02-10] MEDS ORDERED: ATENOLOL100 MG PO (14:16)
[2017-02-10] MEDS ORDERED: ELIQUIS2.5 MG PO (14:18)
[2017-02-10] MEDS ORDERED: LOVASTATIN20 MG PO (14:18)
[2017-02-10] MEDS ORDERED: CARDIZEM120 MG PO (14:19)
[2017-02-10] MEDS ORDERED: CALCIUM 500 MG1 EACH PO (14:20)
[2017-02-10] MEDS ORDERED: CARDIZEM CD120 MG PO (14:20)
[2017-02-10 14:21] LABS: INTER. NORMALIZED RATIO 1.5
[2017-02-10] MEDS ORDERED: HYDROCHLOROTHIA25 MG PO (14:21)
[2017-02-10] MEDS ORDERED: MOMETASONE FURO45 GM TP (14:21)
[2017-02-10] MEDS ORDERED: IRON325 M1 PO (14:22)
[2017-02-10] MEDS ORDERED: ITCH-X GEL35.4 GM TP (14:22)
[2017-02-10] MEDS ORDERED: TRIAMCINOLONE A15 G2 TP (14:22)
[2017-02-10] MEDS ORDERED: CYANOCOBALAM1000 MCG PO (14:23)
[2017-02-10] MEDS ORDERED: VENTOLIN HFA18 GM IH (14:23)
[2017-02-10 14:24] LABS: PTT 25.7 SEC (25-37)
[2017-02-10 14:26] LABS: ALBUMIN 3.6 g/dL (3.2-4.8); CHLORIDE 89 mEq/L (99-109); POTASSIUM 3.4 mEq/L (3.7-5.4); SODIUM 129 mEq/L (136-147)
[2017-02-10 14:27] LABS: MAGNESIUM 1.2 mg/dL (1.3-2.7)
[2017-02-10 14:28] LABS: GLUCOSE 178 mg/dL (70-99)
[2017-02-10 14:29] LABS: TOTAL PROTEIN 6.5 g/dL (6.4-8.3)
[2017-02-10 14:30] LABS: TOTAL BILIRUBIN 0.6 mg/dL (0.0-1.0)
[2017-02-10 14:32] LABS: ALKALINE PHOSPHATASE 98 IU/L (3-129); CREATININE 1.4 mg/dL (0.6-1.3); GFR ESTIMATE (CALCULATED) 38 mL/min/
[2017-02-10 14:33] LABS: UREA NITROGEN (BUN) 27 mg/dL (9-23)
[2017-02-10 14:34] LABS: AST (GOT) 15 IU/L (2-34)
[2017-02-10 14:35] LABS: ALT (GPT) 19 IU/L (3-49); CREATINE KINASE 26 IU/L (1-294); TOTAL CK 26 IU/L (1-294); TROP-I INTERPRETATION NEGATIVE; TROPONIN-I 0.02 ng/mL (0.0-0.30)
[2017-02-10 14:41] LABS: CK-MB 1.3 ng/mL (0.0-4.9)
[2017-02-10 16:01] LABS: THYROTROPIN (TSH) 7.3 MIU/L (0.4-5.5)
[2017-02-10 16:28] LABS: APPEARANCE CLEAR ((CLEAR)); BILIRUBIN NEGATIVE; BLOOD NEGATIVE; COLOR YELLOW ((YELLOW)); GLUCOSE (STRIP) NEGATIVE; KETONES NEGATIVE; LEUKOCYTES NEGATIVE; NITRITE NEGATIVE; PROTEIN (STRIP) 100; UROBILINOGEN 0.2 MG/DL (0.2-1.0)
[2017-02-10 16:33] LABS: BACTERIA 1+ /HPF; EPITHELIAL CELLS NONE SEEN /HPF; MUCUS NONE SEEN /LPF; RED BLOOD CELLS 0-5 /HPF (0-5); UCUL ADDED? NO; WHITE BLOOD CELLS NONE SEEN /HPF (0-5)
[2017-02-10 16:53] LABS: BASOPHIL (%) 0.1 % (0-1); EOSINOPHIL (%) 0 % (0-5); HEMATOCRIT 31.5 % (36.0-46.0); HEMOGLOBIN 10.7 G/DL (11.9-15.5); IMMATURE GRANULOCYTE (%) 1.5 % (0.0-0.7); LYMPHOCYTE (%) 2.7 % (15-42); LYMPHOCYTE COUNT 0.6 K/uL (1.0-2.8); MCH 29.9 PG (29.0-34.0); MONOCYTE (%) 4.7 % (3-12); MONOCYTE COUNT 1.1 K/uL (0-0.8); NEUTROPHIL COUNT 20.9 K/uL (1.8-6.4); PLATELET COUNT 142 K/uL (156-360); RBC DIS.WIDTH-CV 14.7 % (11.8-14.6); RBC DIS.WIDTH-SD 47.4 % (39-53); RED BLOOD COUNT 3.58 M/uL (3.80-5.20)
[2017-02-10 17:14] LABS: TROP-I INTERPRETATION NEGATIVE; TROPONIN-I 0.03 ng/mL (0.0-0.30)
[2017-02-10] MEDS ORDERED: KENALOG,ARISTOC80 GM TP (18:58)
[2017-02-10 21:31] VITALS: BP 163/71
[2017-02-11 03:47] VITALS: BP 162/66
[2017-02-11 06:39] LABS: HEMATOCRIT 30.6 % (36.0-46.0); HEMOGLOBIN 9.9 G/DL (11.9-15.5); MCH 28.9 PG (29.0-34.0); MCHC 32.4 G/DL (30.0-36.0); MCV 89.5 FL (83-99); PLATELET COUNT 144 K/uL (156-360); RBC DIS.WIDTH-CV 15.3 % (11.8-14.6); RBC DIS.WIDTH-SD 49.2 % (39-53); RED BLOOD COUNT 3.42 M/uL (3.80-5.20); WHITE BLOOD COUNT 14.2 K/uL (4.1-10.2)
[2017-02-11 07:08] LABS: CHLORIDE 95 MEQ/L (99-109); CREATININE 1.3 MG/DL (0.6-1.3); GFR ESTIMATE (CALCULATED) 41 mL/min/; GLUCOSE 91 mg/dL (70-99); POTASSIUM 4.6 MEQ/L (3.7-5.4); SODIUM 135 MEQ/L (136-147); UREA NITROGEN (BUN) 20 mg/dL (9-23)
[2017-02-11 07:32] VITALS: BP 169/59
[2017-02-11 11:21] VITALS: BP 168/70
[2017-02-11 14:41] LABS: MAGNESIUM 1.8 mg/dl (1.3-2.7)
[2017-02-11 16:13] VITALS: BP 180/74
[2017-02-11 20:14] VITALS: BP 173/67
[2017-02-12 00:35] VITALS: BP 151/63
[2017-02-12 06:41] LABS: CHLORIDE 95 MEQ/L (99-109); CREATININE 1.4 MG/DL (0.6-1.3); GFR ESTIMATE (CALCULATED) 38 mL/min/; GLUCOSE 101 mg/dL (70-99); POTASSIUM 4.2 MEQ/L (3.7-5.4); SODIUM 133 MEQ/L (136-147); UREA NITROGEN (BUN) 22 mg/dL (9-23)
[2017-02-12 07:41] VITALS: BP 148/65
[2017-02-12 10:48] VITALS: BP 150/69
[2017-02-12 14:13] LABS: HEMOGLOBIN 9.9 G/DL (11.9-15.5); MCH 29.6 PG (29.0-34.0); MCV 89.6 FL (83-99); PLATELET COUNT 144 K/uL (156-360); RBC DIS.WIDTH-CV 15.6 % (11.8-14.6); RBC DIS.WIDTH-SD 51.1 % (39-53); RED BLOOD COUNT 3.35 M/uL (3.80-5.20); WHITE BLOOD COUNT 13.8 K/uL (4.1-10.2)
[2017-02-12 16:36] VITALS: BP 152/68
[2017-02-12 20:00] VITALS: BP 162/71
[2017-02-13] VITALS: BP 161/70
[2017-02-13 04:00] VITALS: BP 102/67
[2017-02-13 06:32] LABS: HEMATOCRIT 29.5 % (36.0-46.0); HEMOGLOBIN 9.8 G/DL (11.9-15.5); MCH 29.6 PG (29.0-34.0); MCHC 33.2 G/DL (30.0-36.0); MCV 89.1 FL (83-99); PLATELET COUNT 131 K/uL (156-360); RBC DIS.WIDTH-CV 15.3 % (11.8-14.6); RBC DIS.WIDTH-SD 50.4 % (39-53); RED BLOOD COUNT 3.31 M/uL (3.80-5.20)
[2017-02-13 06:53] LABS: CHLORIDE 95 MEQ/L (99-109); CREATININE 1.5 MG/DL (0.6-1.3); GFR ESTIMATE (CALCULATED) 35 mL/min/; GLUCOSE 116 mg/dL (70-99); POTASSIUM 4.4 MEQ/L (3.7-5.4); SODIUM 132 MEQ/L (136-147); UREA NITROGEN (BUN) 20 mg/dL (9-23)
[2017-02-13 08:04] VITALS: BP 139/63
[2017-02-13 08:07] VITALS: BP 164/73
[2017-02-13 11:20] VITALS: BP 154/80
[2017-02-13 15:46] VITALS: BP 139/65
[2017-02-14] VITALS: BP 145/66
[2017-02-14 06:55] LABS: CHLORIDE 97 MEQ/L (99-109); CREATININE 1.4 MG/DL (0.6-1.3); GFR ESTIMATE (CALCULATED) 38 mL/min/; GLUCOSE 102 mg/dL (70-99); POTASSIUM 3.6 MEQ/L (3.7-5.4); SODIUM 134 MEQ/L (136-147); UREA NITROGEN (BUN) 18 mg/dL (9-23)
[2017-02-14 07:04] LABS: BASOPHIL (%) 0.1 % (0-1); EOSINOPHIL (%) 0.5 % (0-5); EOSINOPHIL COUNT 0.1 K/uL (0-0.3); HEMATOCRIT 28.5 % (36.0-46.0); HEMOGLOBIN 9.6 G/DL (11.9-15.5); LYMPHOCYTE (%) 4.5 % (15-42); LYMPHOCYTE COUNT 0.5 K/uL (1.0-2.8); MCH 30.1 PG (29.0-34.0); MCHC 33.7 G/DL (30.0-36.0); MCV 89.3 FL (83-99); MONOCYTE (%) 7.2 % (3-12); MONOCYTE COUNT 0.9 K/uL (0-0.8); NEUTROPHIL (%) 86.7 % (45-76); NEUTROPHIL COUNT 10.4 K/uL (1.8-6.4); PLATELET COUNT 132 K/uL (156-360); RBC DIS.WIDTH-CV 15.3 % (11.8-14.6); RBC DIS.WIDTH-SD 50.1 % (39-53); RED BLOOD COUNT 3.19 M/uL (3.80-5.20)
[2017-02-14 08:18] VITALS: BP 135/60
[2017-02-14 15:47] VITALS: BP 135/65
[2017-02-14 20:00] VITALS: BP 145/65
[2017-02-15] VITALS (7 sets, daily range): BP systolic 133–160; BP diastolic 50–70
[2017-02-15 04:15] LABS: BASOPHIL (%) 0.2 % (0-1); EOSINOPHIL (%) 0.6 % (0-5); EOSINOPHIL COUNT 0.1 K/uL (0-0.3); HEMATOCRIT 26.7 % (36.0-46.0); HEMOGLOBIN 8.9 G/DL (11.9-15.5); IMMATURE GRANULOCYTE (%) 0.6 % (0.0-0.7); LYMPHOCYTE (%) 7.2 % (15-42); LYMPHOCYTE COUNT 0.9 K/uL (1.0-2.8); MCH 29.7 PG (29.0-34.0); MCHC 33.3 G/DL (30.0-36.0); MONOCYTE (%) 5.9 % (3-12); MONOCYTE COUNT 0.7 K/uL (0-0.8); NEUTROPHIL (%) 85.5 % (45-76); NEUTROPHIL COUNT 10.5 K/uL (1.8-6.4); PLATELET COUNT 144 K/uL (156-360); RBC DIS.WIDTH-CV 15.4 % (11.8-14.6); RBC DIS.WIDTH-SD 50.4 % (39-53); WHITE BLOOD COUNT 12.3 K/uL (4.1-10.2)
[2017-02-15 04:33] LABS: POTASSIUM 4.3 mEq/L (3.7-5.4); SODIUM 133 mEq/L (136-147)
[2017-02-15 04:35] LABS: GLUCOSE 126 mg/dL (70-99)
[2017-02-15 04:39] LABS: CREATININE 1.3 mg/dL (0.6-1.3); GFR ESTIMATE (CALCULATED) 41 mL/min/; UREA NITROGEN (BUN) 19 mg/dL (9-23)
[2017-02-15 04:40] LABS: TROP-I INTERPRETATION NEGATIVE; TROPONIN-I 0.02 ng/mL (0.0-0.30)
[2017-02-15 04:47] LABS: CHLORIDE 101 mEq/L (99-109)
[2017-02-16 06:27] LABS: BASOPHIL (%) 0.1 % (0-1); EOSINOPHIL (%) 0 % (0-5); HEMATOCRIT 26.4 % (36.0-46.0); HEMOGLOBIN 8.9 G/DL (11.9-15.5); IMMATURE GRANULOCYTE (%) 0.6 % (0.0-0.7); LYMPHOCYTE COUNT 0.2 K/uL (1.0-2.8); MCH 29.7 PG (29.0-34.0); MCHC 33.7 G/DL (30.0-36.0); MONOCYTE (%) 2.5 % (3-12); MONOCYTE COUNT 0.2 K/uL (0-0.8); NEUTROPHIL (%) 93.8 % (45-76); NEUTROPHIL COUNT 6.3 K/uL (1.8-6.4); PLATELET COUNT 149 K/uL (156-360); RBC DIS.WIDTH-CV 15.3 % (11.8-14.6); RBC DIS.WIDTH-SD 48.8 % (39-53); WHITE BLOOD COUNT 6.8 K/uL (4.1-10.2)
[2017-02-16 06:59] LABS: CHLORIDE 96 MEQ/L (99-109); CREATININE 1.7 MG/DL (0.6-1.3); GFR ESTIMATE (CALCULATED) 30 mL/min/; GLUCOSE 180 mg/dL (70-99); POTASSIUM 3.9 MEQ/L (3.7-5.4); SODIUM 132 MEQ/L (136-147); UREA NITROGEN (BUN) 27 mg/dL (9-23)
[2017-02-16 07:49] VITALS: BP 134/64
[2017-02-16 09:34] LABS: TYPE OF FLUID PLEURAL
[2017-02-16 10:30] LABS: BODY FLUID GLUCOSE 194 MG/DL; BODY FLUID LDH 68 IU/L; BODY FLUID PROTEIN < 3.0 G/DL
[2017-02-16 10:37] LABS: APPEARANCE CLEAR-YELLOW; BODY FLUID EOSINOPHILS 0 % (0-25); BODY FLUID RBC'S 1000 /MM^3 (0-100); BODY FLUID WBC'S 342 /MM^3 (0-500); MONONUCLEAR WBC'S 57 %; POLYNUCLEAR WBC'S 43 % (0-25)
[2017-02-16 23:01] VITALS: BP 133/68
[2017-02-17 06:10] LABS: BASOPHIL (%) 0 % (0-1); EOSINOPHIL (%) 0 % (0-5); HEMATOCRIT 25.3 % (36.0-46.0); HEMOGLOBIN 8.4 G/DL (11.9-15.5); IMMATURE GRANULOCYTE (%) 0.5 % (0.0-0.7); LYMPHOCYTE COUNT 0.3 K/uL (1.0-2.8); MCH 28.8 PG (29.0-34.0); MCHC 33.2 G/DL (30.0-36.0); MCV 86.6 FL (83-99); MONOCYTE (%) 1.9 % (3-12); MONOCYTE COUNT 0.2 K/uL (0-0.8); NEUTROPHIL (%) 94.6 % (45-76); NEUTROPHIL COUNT 7.9 K/uL (1.8-6.4); PLATELET COUNT 164 K/uL (156-360); RBC DIS.WIDTH-CV 15.5 % (11.8-14.6); RBC DIS.WIDTH-SD 48.8 % (39-53); RED BLOOD COUNT 2.92 M/uL (3.80-5.20); WHITE BLOOD COUNT 8.4 K/uL (4.1-10.2)
[2017-02-17 06:40] LABS: ALBUMIN 2.9 G/DL (3.2-4.8); CHLORIDE 98 MEQ/L (99-109); CREATININE 1.7 MG/DL (0.6-1.3); GFR ESTIMATE (CALCULATED) 30 mL/min/; GLUCOSE 200 mg/dL (70-99); IRON 30 MCG/DL (35-150); PHOSPHORUS 2.8 mg/dL (2.5-4.9); POTASSIUM 3.3 MEQ/L (3.7-5.4); SODIUM 133 MEQ/L (136-147); TRANSFERRIN (TIBC) 182.2 mg/dL (215-380); TRANSFERRIN SATUR. 16 % (20-55); UREA NITROGEN (BUN) 30 mg/dL (9-23)
[2017-02-17 06:56] LABS: URIC ACID 3.1 mg/dL (3.1-9.2)
[2017-02-17 07:05] VITALS: BP 133/60
[2017-02-17 08:23] LABS: THYROTROPIN (TSH) 2.1 MIU/L (0.4-5.5)
[2017-02-17 15:48] LABS: FERRITIN 566 NG/ML (10-291)
[2017-02-17 16:15] VITALS: BP 130/63
[2017-02-17 22:47] VITALS: BP 144/67
[2017-02-18 06:18] LABS: BASOPHIL (%) 0.1 % (0-1); EOSINOPHIL (%) 0 % (0-5); HEMATOCRIT 25.5 % (36.0-46.0); HEMOGLOBIN 8.4 G/DL (11.9-15.5); IMMATURE GRANULOCYTE (%) 0.7 % (0.0-0.7); LYMPHOCYTE (%) 3.3 % (15-42); LYMPHOCYTE COUNT 0.3 K/uL (1.0-2.8); MCH 28.9 PG (29.0-34.0); MCHC 32.9 G/DL (30.0-36.0); MCV 87.6 FL (83-99); MONOCYTE (%) 2.1 % (3-12); MONOCYTE COUNT 0.2 K/uL (0-0.8); NEUTROPHIL (%) 93.8 % (45-76); PLATELET COUNT 153 K/uL (156-360); RBC DIS.WIDTH-CV 15.7 % (11.8-14.6); RBC DIS.WIDTH-SD 50.2 % (39-53); RED BLOOD COUNT 2.91 M/uL (3.80-5.20); WHITE BLOOD COUNT 8.5 K/uL (4.1-10.2)
[2017-02-18 06:42] LABS: ALBUMIN 2.8 G/DL (3.2-4.8); CHLORIDE 101 MEQ/L (99-109); CREATININE 1.8 MG/DL (0.6-1.3); GFR ESTIMATE (CALCULATED) 28 mL/min/; GLUCOSE 168 mg/dL (70-99); PHOSPHORUS 2.8 mg/dL (2.5-4.9); POTASSIUM 3.8 MEQ/L (3.7-5.4); SODIUM 135 MEQ/L (136-147); UREA NITROGEN (BUN) 39 mg/dL (9-23)
[2017-02-18 09:09] VITALS: BP 136/60
[2017-02-18 17:00] VITALS: BP 138/62
[2017-02-18 20:52] LABS: UR CREATININE CONCENTRATION 100.5 MG/DL
[2017-02-18 23:34] VITALS: BP 141/75
[2017-02-19 05:48] LABS: BASOPHIL (%) 0.1 % (0-1); EOSINOPHIL (%) 0 % (0-5); HEMATOCRIT 27.7 % (36.0-46.0); HEMOGLOBIN 9.2 G/DL (11.9-15.5); IMMATURE GRANULOCYTE (%) 0.9 % (0.0-0.7); LYMPHOCYTE (%) 3.8 % (15-42); LYMPHOCYTE COUNT 0.3 K/uL (1.0-2.8); MCH 29.4 PG (29.0-34.0); MCHC 33.2 G/DL (30.0-36.0); MCV 88.5 FL (83-99); MONOCYTE (%) 2.8 % (3-12); MONOCYTE COUNT 0.3 K/uL (0-0.8); NEUTROPHIL (%) 92.4 % (45-76); NEUTROPHIL COUNT 8.2 K/uL (1.8-6.4); PLATELET COUNT 177 K/uL (156-360); RBC DIS.WIDTH-CV 15.9 % (11.8-14.6); RBC DIS.WIDTH-SD 51.3 % (39-53); RED BLOOD COUNT 3.13 M/uL (3.80-5.20); WHITE BLOOD COUNT 8.9 K/uL (4.1-10.2)
[2017-02-19 06:30] LABS: CHLORIDE 102 MEQ/L (99-109); CREATININE 1.6 MG/DL (0.6-1.3); GFR ESTIMATE (CALCULATED) 32 mL/min/; GLUCOSE 162 mg/dL (70-99); POTASSIUM 4.1 MEQ/L (3.7-5.4); SODIUM 138 MEQ/L (136-147); UREA NITROGEN (BUN) 42 mg/dL (9-23)
[2017-02-19 07:46] VITALS: BP 149/68
[2017-02-19 15:56] VITALS: BP 139/63
[2017-02-20 00:57] VITALS: BP 139/63
[2017-02-20 06:44] LABS: BASOPHIL (%) 0 % (0-1); EOSINOPHIL (%) 0.1 % (0-5); HEMATOCRIT 26.9 % (36.0-46.0); HEMOGLOBIN 8.9 G/DL (11.9-15.5); IMMATURE GRANULOCYTE (%) 1.8 % (0.0-0.7); LYMPHOCYTE (%) 7.1 % (15-42); LYMPHOCYTE COUNT 0.5 K/uL (1.0-2.8); MCH 29.3 PG (29.0-34.0); MCHC 33.1 G/DL (30.0-36.0); MCV 88.5 FL (83-99); MONOCYTE (%) 5.2 % (3-12); MONOCYTE COUNT 0.4 K/uL (0-0.8); NEUTROPHIL (%) 85.8 % (45-76); NEUTROPHIL COUNT 6.3 K/uL (1.8-6.4); PLATELET COUNT 165 K/uL (156-360); RBC DIS.WIDTH-CV 15.9 % (11.8-14.6); RBC DIS.WIDTH-SD 51.1 % (39-53); RED BLOOD COUNT 3.04 M/uL (3.80-5.20); WHITE BLOOD COUNT 7.3 K/uL (4.1-10.2)
[2017-02-20 07:14] LABS: ALBUMIN 2.8 G/DL (3.2-4.8); CHLORIDE 102 MEQ/L (99-109); CREATININE 1.5 MG/DL (0.6-1.3); GFR ESTIMATE (CALCULATED) 35 mL/min/; GLUCOSE 151 mg/dL (70-99); PHOSPHORUS 3.4 mg/dL (2.5-4.9); POTASSIUM 4.1 MEQ/L (3.7-5.4); SODIUM 135 MEQ/L (136-147); UREA NITROGEN (BUN) 45 mg/dL (9-23)
[2017-02-20 07:23] VITALS: BP 157/66
[2017-02-20 11:25] VITALS: BP 154/66
[2017-02-20 15:31] VITALS: BP 154/67
[2017-02-20 23:09] VITALS: BP 156/68
[2017-02-21 06:55] LABS: ALBUMIN 3.3 G/DL (3.2-4.8); CHLORIDE 98 MEQ/L (99-109); CREATININE 1.4 MG/DL (0.6-1.3); GFR ESTIMATE (CALCULATED) 38 mL/min/; GLUCOSE 142 mg/dL (70-99); PHOSPHORUS 3.5 mg/dL (2.5-4.9); POTASSIUM 3.9 MEQ/L (3.7-5.4); SODIUM 134 MEQ/L (136-147); UREA NITROGEN (BUN) 42 mg/dL (9-23)
[2017-02-21 07:23] VITALS: BP 164/71
[2017-02-21 08:00] VITALS: BP 129/59
[2017-02-21] MEDS ORDERED: VIMPAT50 MG PO (14:13)
[2017-02-21] MEDS ORDERED: SEROQUEL12.5 MG PO (14:13)
[2017-02-21] MEDS ORDERED: NORVASC2.5 MG PO (14:14)
[2017-02-21 16:00] VITALS: BP 163/73
[2017-02-22 00:03] VITALS: BP 125/58
[2017-02-22 06:31] LABS: ALBUMIN 3.1 G/DL (3.2-4.8); CHLORIDE 99 MEQ/L (99-109); CREATININE 1.4 MG/DL (0.6-1.3); GFR ESTIMATE (CALCULATED) 38 mL/min/; GLUCOSE 147 mg/dL (70-99); PHOSPHORUS 3.3 mg/dL (2.5-4.9); SODIUM 136 MEQ/L (136-147); UREA NITROGEN (BUN) 41 mg/dL (9-23)
[2017-02-22 07:49] VITALS: BP 157/72
[2017-02-22 15:54] VITALS: BP 134/53
[2017-02-23 00:24] VITALS: BP 150/70
[2017-02-23 05:59] LABS: HEMATOCRIT 30.2 % (36.0-46.0); MCV 88.3 FL (83-99)
[2017-02-23 06:24] LABS: CHLORIDE 97 MEQ/L (99-109); CREATININE 1.3 MG/DL (0.6-1.3); GFR ESTIMATE (CALCULATED) 41 mL/min/; GLUCOSE 140 mg/dL (70-99); PHOSPHORUS 2.9 mg/dL (2.5-4.9); POTASSIUM 3.9 MEQ/L (3.7-5.4); SODIUM 136 MEQ/L (136-147); UREA NITROGEN (BUN) 39 mg/dL (9-23)
[2017-02-23 07:30] VITALS: BP 158/67
== END 2017-02-23 11:28 | DRG 100 ==
LOC: EME 13:29 → EDOF 19:33 → 5EAST 19:33 → ENRESERV 19:52 → 5EAST 21:16 → ENPENDDIS 02-23 11:15 → 5EAST 02-23 11:28
PROVIDERS: Emergency Medicine; Hospitalist; Internal Medicine; Internal Medicine Nephrology; Internal Medicine Pulmonary Disease; Student in an Organized Health Care Education/Training Program
PROC: 0W993ZZ Drainage of Right Pleural Cavity, Percutaneous Approach (ICD-10-PCS; principal; 2017-02-16)
DX: G40.409 Other generalized epilepsy and epileptic syndromes, not intractable, without status epilepticus (principal); J69.0 Pneumonitis due to inhalation of food and vomit; G93.40 Encephalopathy, unspecified; I12.9 Hypertensive chronic kidney disease with stage 1 through stage 4 chronic kidney disease, or unspecified chronic kidney disease; I48.0 Paroxysmal atrial fibrillation; N18.3 Chronic kidney disease, stage 3 (moderate); E87.6 Hypokalemia; E83.42 Hypomagnesemia; E03.9 Hypothyroidism, unspecified; E22.2 Syndrome of inappropriate secretion of antidiuretic hormone; E78.5 Hyperlipidemia, unspecified; N17.9 Acute kidney failure, unspecified; E86.0 Dehydration; J90 Pleural effusion, not elsewhere classified; M10.9 Gout, unspecified; I25.2 Old myocardial infarction; I48.2 Chronic atrial fibrillation; I48.92 Unspecified atrial flutter; J44.1 Chronic obstructive pulmonary disease with (acute) exacerbation; J96.01 Acute respiratory failure with hypoxia; N39.0 Urinary tract infection, site not specified; B95.2 Enterococcus as the cause of diseases classified elsewhere; Z66 Do not resuscitate; Z79.01 Long term (current) use of anticoagulants; M81.0 Age-related osteoporosis without current pathological fracture
CPT/HCPCS: 70450; 71010; 71020; 71250; 74230; 76770; 76942; 80048; 80053; 80069; 80202; 81003; 82550; 82553; 82570; 82728; 82945; 82948; 83540; 83615 91; 83735; 83880; 83935; 84156; 84157; 84300; 84439; 84443; 84466; 84484; 84550; 85014; 85018; 85025; 85025 91; 85027; 85610; 85730; 87070; 87075; 87077; 87086; 87116; 87186; 87205; 87206; 87449; 87641; 88108; 88305; 89051; 92526 GN; 92610 GN; 92611 GN; 93005; 94010; 94640; 94640 76; 94760; 94799; 95819; 97530 GO; 97530 GP; 99202; 99281; 99285; J0456; J0692; J1940; J2405; J2543; J2920; J2930; J3370; J3475; J7030; J7040; J7050; J7512

== ENCOUNTER 2017-03-11 09:15 | Inpatient (IN) | payer OTHER ==
[~2017-03-11] VITALS: Ht 160 cm; Wt 52.7 kg
[~2017-03-11 09:15] MED LIST changes: +CALCIUM 500 MG1 EACH PO; +CARDIZEM120 MG PO; +CYANOCOBALAM1000 MCG PO; +IRON325 M1 PO; +ITCH-X GEL35.4 GM TP; +NORVASC2.5 MG PO; +SEROQUEL12.5 MG PO; +TRIAMCINOLONE A15 G2 TP; +VIMPAT50 MG PO
[2017-03-11 09:48] LABS: BASOPHIL (%) 0.2 % (0-1); EOSINOPHIL (%) 0 % (0-5); HEMATOCRIT 28.7 % (36.0-46.0); HEMOGLOBIN 9.3 G/DL (11.9-15.5); LYMPHOCYTE (%) 19.7 % (15-42); LYMPHOCYTE COUNT 1.9 K/uL (1.0-2.8); MCH 29.8 PG (29.0-34.0); MCHC 32.4 G/DL (30.0-36.0); MONOCYTE (%) 7.6 % (3-12); MONOCYTE COUNT 0.7 K/uL (0-0.8); NEUTROPHIL (%) 70.5 % (45-76); NEUTROPHIL COUNT 6.9 K/uL (1.8-6.4); PLATELET COUNT 187 K/uL (156-360); RBC DIS.WIDTH-CV 15.9 % (11.8-14.6); RBC DIS.WIDTH-SD 52.9 % (39-53); RED BLOOD COUNT 3.12 M/uL (3.80-5.20); WHITE BLOOD COUNT 9.8 K/uL (4.1-10.2)
[2017-03-11 09:55] LABS: INTER. NORMALIZED RATIO 1.6
[2017-03-11 09:57] LABS: CHLORIDE 93 mEq/L (99-109); PTT 26.2 SEC (25-37)
[2017-03-11 09:58] LABS: GLUCOSE 147 mg/dL (70-99); SODIUM 131 mEq/L (136-147)
[2017-03-11 10:08] LABS: TROP-I INTERPRETATION NEGATIVE; TROPONIN-I 0.04 ng/mL (0.0-0.30)
[2017-03-11 10:11] LABS: GFR ESTIMATE (CALCULATED) 16 mL/min/; UREA NITROGEN (BUN) 31 mg/dL (9-23)
[2017-03-11 10:12] LABS: POTASSIUM 6.3 mEq/L (3.7-5.4)
[2017-03-11 10:27] LABS: BASE EXCESS 4.7 mEq/L (-3 to +3); BICARBONATE 29.2 mEq/L (22-26); CARBOXY HGB 1.7 % (0-5); COMMENTS - BLOOD GASES NAC+; DEVICE CANNULA; METHEMOGLOBIN 0.7 % (0-1.5); O2 FLOW 2 L/MIN; PCO2 42 mm Hg (35-45); PO2 88 mm Hg (80-100); SITE LR; pH 7.45 (7.35-7.45)
[2017-03-11] MEDS ORDERED: LASIX20 MG PO (12:43)
[2017-03-11] MEDS ORDERED: CEFTIN500 MG PO (12:44)
[2017-03-11] MEDS ORDERED: FLORASTOR250 MG PO (12:45)
[2017-03-11] MEDS ORDERED: AMLODIPINE BES2.5 MG PO (12:46)
[2017-03-11] MEDS ORDERED: BREO INHALER (12:48)
[2017-03-11] MEDS ORDERED: VITAMIN B-12500 MC5 SL (12:49)
[2017-03-11] MEDS ORDERED: PHENERGAN25 MG PR (12:51)
[2017-03-11] MEDS ORDERED: ATIVAN0.5 MG PO (12:52)
[2017-03-11] MEDS ORDERED: DUONEB 2.5-0.5 M3 ML AEROSOL (12:55)
[2017-03-11] MEDS ORDERED: ROBAFEN PO (12:56)
[2017-03-11] MEDS ORDERED: AMITRIPTYLINE H10 MG PO (13:07)
[2017-03-11] MEDS ORDERED: TIROSINT75 MCG PO (13:07)
[2017-03-11] MEDS ORDERED: VITAMIN C500 M6 PO (13:08)
[2017-03-11] MEDS ORDERED: VITAMIN D31000 UNIT PO (13:08)
[2017-03-11] MEDS ORDERED: ALLOPURINOL100 MG PO (13:08)
[2017-03-11] MEDS ORDERED: SUPER CALCIUM600 MG PO (13:09)
[2017-03-11] MEDS ORDERED: DILTIAZEM 24HR120 MG PO (13:10)
[2017-03-11] MEDS ORDERED: CARDIZEM CD,CA240 MG PO (13:10)
[2017-03-11 15:05] LABS: CHLORIDE 93 mEq/L (99-109); SODIUM 133 mEq/L (136-147)
[2017-03-11 15:07] LABS: GLUCOSE 168 mg/dL (70-99)
[2017-03-11 15:11] LABS: CREATININE 2.8 mg/dL (0.6-1.3); GFR ESTIMATE (CALCULATED) 17 mL/min/; POTASSIUM 4.8 mEq/L (3.7-5.4)
[2017-03-11 15:12] LABS: UREA NITROGEN (BUN) 31 mg/dL (9-23)
[2017-03-11 15:55] VITALS: BP 146/70
[2017-03-11 16:00] VITALS: BP 146/70
[2017-03-11 20:45] VITALS: BP 144/77
[2017-03-12] VITALS (7 sets, daily range): BP systolic 133–158; BP diastolic 63–82
[2017-03-12 06:32] LABS: BASOPHIL (%) 0.2 % (0-1); EOSINOPHIL (%) 0 % (0-5); HEMATOCRIT 30.7 % (36.0-46.0); IMMATURE GRANULOCYTE (%) 1.5 % (0.0-0.7); LYMPHOCYTE (%) 9.4 % (15-42); LYMPHOCYTE COUNT 0.8 K/uL (1.0-2.8); MCH 29.9 PG (29.0-34.0); MCHC 32.6 G/DL (30.0-36.0); MCV 91.6 FL (83-99); MONOCYTE COUNT 0.2 K/uL (0-0.8); NEUTROPHIL (%) 86.9 % (45-76); NEUTROPHIL COUNT 7.6 K/uL (1.8-6.4); NRBC (%) 0.3 /100 WBC (0-0); RBC DIS.WIDTH-CV 15.9 % (11.8-14.6); RBC DIS.WIDTH-SD 53.1 % (39-53); RED BLOOD COUNT 3.35 M/uL (3.80-5.20); WHITE BLOOD COUNT 8.7 K/uL (4.1-10.2)
[2017-03-12 06:34] LABS: PLATELET COUNT 244 K/uL (156-360)
[2017-03-12 06:46] LABS: ALBUMIN 2.9 G/DL (3.2-4.8); ALKALINE PHOSPHATASE 79 IU/L (3-129); ALT (GPT) 205 IU/L (3-49); AST (GOT) 170 IU/L (2-34); CHLORIDE 96 MEQ/L (99-109); GLUCOSE 140 mg/dL (70-99); POTASSIUM 4.1 MEQ/L (3.7-5.4); SODIUM 137 MEQ/L (136-147); TOTAL BILIRUBIN 0.5 MG/DL (0.0-1.0); TOTAL PROTEIN 5.5 G/DL (6.4-8.3); UREA NITROGEN (BUN) 30 mg/dL (9-23)
[2017-03-12 06:50] LABS: CREATININE 2.2 MG/DL (0.6-1.3); GFR ESTIMATE (CALCULATED) 22 mL/min/
[2017-03-13 04:35] VITALS: BP 135/74
[2017-03-13 05:40] LABS: BASOPHIL (%) 0.1 % (0-1); EOSINOPHIL (%) 0.1 % (0-5); HEMATOCRIT 30.8 % (36.0-46.0); HEMOGLOBIN 9.8 G/DL (11.9-15.5); IMMATURE GRANULOCYTE (%) 1.4 % (0.0-0.7); LYMPHOCYTE (%) 12.2 % (15-42); LYMPHOCYTE COUNT 1.2 K/uL (1.0-2.8); MCH 29.1 PG (29.0-34.0); MCHC 31.8 G/DL (30.0-36.0); MCV 91.4 FL (83-99); MONOCYTE (%) 6.1 % (3-12); MONOCYTE COUNT 0.6 K/uL (0-0.8); NEUTROPHIL (%) 80.1 % (45-76); NEUTROPHIL COUNT 7.8 K/uL (1.8-6.4); NRBC (%) 0.3 /100 WBC (0-0); PLATELET COUNT 277 K/uL (156-360); RBC DIS.WIDTH-CV 15.9 % (11.8-14.6); RBC DIS.WIDTH-SD 52.6 % (39-53); RED BLOOD COUNT 3.37 M/uL (3.80-5.20); WHITE BLOOD COUNT 9.8 K/uL (4.1-10.2)
[2017-03-13 06:05] LABS: ALBUMIN 2.7 G/DL (3.2-4.8); ALKALINE PHOSPHATASE 74 IU/L (3-129); ALT (GPT) 167 IU/L (3-49); AST (GOT) 84 IU/L (2-34); CHLORIDE 96 MEQ/L (99-109); CREATININE 1.9 MG/DL (0.6-1.3); GFR ESTIMATE (CALCULATED) 27 mL/min/; GLUCOSE 123 mg/dL (70-99); POTASSIUM 3.7 MEQ/L (3.7-5.4); SODIUM 136 MEQ/L (136-147); TOTAL BILIRUBIN 0.4 MG/DL (0.0-1.0); TOTAL PROTEIN 5.1 G/DL (6.4-8.3); UREA NITROGEN (BUN) 31 mg/dL (9-23)
[2017-03-13 08:00] VITALS: BP 147/66
[2017-03-13 12:00] VITALS: BP 149/80
[2017-03-13 16:12] VITALS: BP 168/73
[2017-03-13 19:45] VITALS: BP 164/77
[2017-03-14] VITALS: BP 148/76
[2017-03-14 04:00] VITALS: BP 161/74
[2017-03-14 06:12] LABS: INTER. NORMALIZED RATIO 1.1
[2017-03-14 07:45] LABS: ALKALINE PHOSPHATASE 86 IU/L (3-129); ALT (GPT) 145 IU/L (3-49); AST (GOT) 64 IU/L (2-34); CHLORIDE 98 MEQ/L (99-109); CREATININE 1.5 MG/DL (0.6-1.3); GFR ESTIMATE (CALCULATED) 35 mL/min/; GLUCOSE 96 mg/dL (70-99); POTASSIUM 3.9 MEQ/L (3.7-5.4); SODIUM 138 MEQ/L (136-147); TOTAL PROTEIN 5.5 G/DL (6.4-8.3); UREA NITROGEN (BUN) 26 mg/dL (9-23)
[2017-03-14 07:49] LABS: TOTAL BILIRUBIN 0.5 MG/DL (0.0-1.0)
[2017-03-14 08:30] VITALS: BP 167/79
[2017-03-14 12:40] VITALS: BP 153/83
[2017-03-14 16:02] VITALS: BP 175/84
[2017-03-14 19:16] VITALS: BP 169/88
[2017-03-15] VITALS (8 sets, daily range): BP systolic 142–186; BP diastolic 67–88
[2017-03-15 07:31] LABS: ALBUMIN 2.7 G/DL (3.2-4.8); ALKALINE PHOSPHATASE 85 IU/L (3-129); ALT (GPT) 96 IU/L (3-49); AST (GOT) 42 IU/L (2-34); DIRECT BILIRUBIN 0.2 mg/dL (0.0-0.3); TOTAL BILIRUBIN 0.5 MG/DL (0.0-1.0)
[2017-03-16 02:38] VITALS: BP 169/81
[2017-03-16 03:31] VITALS: BP 181/75
[2017-03-16 07:56] VITALS: BP 169/84
[2017-03-16] MEDS ORDERED: DUONEB 2.5-0.5 M3 ML AEROSOL (15:31)
[2017-03-16] MEDS ORDERED: VITAMIN B-12500 MC5 SL (15:31)
[2017-03-16] MEDS ORDERED: ELIQUIS2.5 MG PO (15:31)
[2017-03-16] MEDS ORDERED: ALLOPURINOL100 MG PO (15:31)
[2017-03-16] MEDS ORDERED: LOPRESSOR25 MG PO (15:31)
[2017-03-16] MEDS ORDERED: VIMPAT50 MG PO (15:31)
[2017-03-16] MEDS ORDERED: PHENERGAN25 MG PR (15:31)
[2017-03-16] MEDS ORDERED: VENTOLIN HFA18 GM IH (15:31)
[2017-03-16] MEDS ORDERED: IRON325 M1 PO (15:31)
[2017-03-16] MEDS ORDERED: VITAMIN D31000 UNIT PO (15:31)
[2017-03-16] MEDS ORDERED: TIROSINT75 MCG PO (15:31)
== END 2017-03-16 17:07 | disposition hospice, home (50) | DRG 682 ==
LOC: EME 09:15 → 4EAST 12:00 → EDOF 12:00 → ENRESERV 12:12 → EDOF 12:48 → ENRESERV 14:11 → 4EAST 15:53 → ENRESERV 03-15 → 4EAST 03-15 10:43 → ENRESERV 03-15 20:35 → 5EAST 03-16 00:04
PROVIDERS: Emergency Medicine; Internal Medicine
DX: N17.9 Acute kidney failure, unspecified (principal); J18.9 Pneumonia, unspecified organism; J90 Pleural effusion, not elsewhere classified; J98.11 Atelectasis; Z68.1 Body mass index [BMI] 19.9 or less, adult; E87.1 Hypo-osmolality and hyponatremia; Z66 Do not resuscitate; Z51.5 Encounter for palliative care; E87.5 Hyperkalemia; I48.0 Paroxysmal atrial fibrillation; J43.9 Emphysema, unspecified; I44.0 Atrioventricular block, first degree; N18.3 Chronic kidney disease, stage 3 (moderate); R09.02 Hypoxemia; E86.0 Dehydration; G40.909 Epilepsy, unspecified, not intractable, without status epilepticus; E03.9 Hypothyroidism, unspecified; I12.9 Hypertensive chronic kidney disease with stage 1 through stage 4 chronic kidney disease, or unspecified chronic kidney disease; M81.0 Age-related osteoporosis without current pathological fracture; E88.09 Other disorders of plasma-protein metabolism, not elsewhere classified; F41.9 Anxiety disorder, unspecified; M10.9 Gout, unspecified; R00.1 Bradycardia, unspecified; R06.03 Acute respiratory distress; E87.8 Other disorders of electrolyte and fluid balance, not elsewhere classified; Z87.01 Personal history of pneumonia (recurrent); Z79.02 Long term (current) use of antithrombotics/antiplatelets; Z79.51 Long term (current) use of inhaled steroids
CPT/HCPCS: 36600; 71045; 76705; 80048; 80048 91; 80053; 80076; 82803; 82948; 83880; 84484; 85025; 85610; 85730; 92610 GN; 93005; 94640; 94640 76; 94799; 99202; 99281; 99285; J2930; J7030

== ENCOUNTER 2017-03-18 17:41 | Emergency (ER) | payer OTHER ==
[~2017-03-18] VITALS: Ht 157.5 cm; Wt 53.3 kg
[~2017-03-18 17:41] MED LIST changes: +AMLODIPINE BES2.5 MG PO; +ATIVAN0.5 MG PO; +BREO INHALER; +CEFTIN500 MG PO; +DUONEB 2.5-0.5 M3 ML AEROSOL; +FLORASTOR250 MG PO; +LASIX20 MG PO; +LOPRESSOR25 MG PO; +PHENERGAN25 MG PR; +ROBAFEN PO; +SUPER CALCIUM600 MG PO; +TIROSINT75 MCG PO; +VITAMIN B-12500 MC5 SL; +VITAMIN C500 M6 PO; +VITAMIN D31000 UNIT PO
[2017-03-18 18:59] LABS: HEMATOCRIT 35.5 % (36.0-46.0); MCH 30.2 PG (29.0-34.0); MCHC 33.8 G/DL (30.0-36.0); MCV 89.4 FL (83-99); RBC DIS.WIDTH-CV 15.6 % (11.8-14.6); RBC DIS.WIDTH-SD 51.4 % (39-53); RED BLOOD COUNT 3.97 M/uL (3.80-5.20)
[2017-03-18 19:04] LABS: INTER. NORMALIZED RATIO 1.1
[2017-03-18 19:07] LABS: ALBUMIN 3.3 g/dL (3.2-4.8); CHLORIDE 97 mEq/L (99-109); POTASSIUM 3.2 mEq/L (3.7-5.4); PTT 27.8 SEC (25-37); SODIUM 137 mEq/L (136-147)
[2017-03-18 19:10] LABS: GLUCOSE 160 mg/dL (70-99); TOTAL PROTEIN 6.4 g/dL (6.4-8.3)
[2017-03-18 19:12] LABS: TOTAL BILIRUBIN 0.3 mg/dL (0.0-1.0)
[2017-03-18 19:13] LABS: ALKALINE PHOSPHATASE 111 IU/L (3-129); CREATININE 1.5 mg/dL (0.6-1.3); GFR ESTIMATE (CALCULATED) 35 mL/min/
[2017-03-18 19:14] LABS: UREA NITROGEN (BUN) 18 mg/dL (9-23)
[2017-03-18 19:15] LABS: AST (GOT) 27 IU/L (2-34)
[2017-03-18 19:16] LABS: ALT (GPT) 56 IU/L (3-49); CREATINE KINASE 36 IU/L (1-294); TOTAL CK 36 IU/L (1-294)
[2017-03-18 19:22] LABS: CK-MB 3.7 ng/mL (0.0-4.9); CKMB RELATIVE INDEX 10.3 (0.0-3.9)
[2017-03-18 19:23] LABS: TROP-I INTERPRETATION NEGATIVE; TROPONIN-I 0.12 ng/mL (0.0-0.30)
[2017-03-18 19:40] LABS: ABS NEUTROPHIL COUNT 11.5; ANISOCYTOSIS 1+; ATYPICAL LYMPHOCYTE 4.3 %; BAND NEUTROPHILS 3.5 % (0-8.0); EOSINOPHIL ABS CT 0; LYMPHOCYTES 10.4 % (15.0-45.0); MACROCYTES 1+; MONOCYTES 3.5 % (0-9.0); PLATELET CLUMPS PRESENT - PLATELET COUNT APPEARS ADQ.; SEG.NEUTROPHILS 78.3 % (46.0-76.0)
[2017-03-18 19:42] LABS: PLATELET COUNT UNABLE TO REPORT K/uL (156-360)
[2017-03-18 22:13] LABS: APPEARANCE CLEAR ((CLEAR)); BILIRUBIN NEGATIVE; BLOOD NEGATIVE; COLOR YELLOW ((YELLOW)); GLUCOSE (STRIP) NEGATIVE; KETONES NEGATIVE; LEUKOCYTES NEGATIVE; NITRITE NEGATIVE; PROTEIN (STRIP) 100; UROBILINOGEN 0.2 MG/DL (0.2-1.0)
[2017-03-18 22:29] LABS: BACTERIA NONE SEEN /HPF; EPITHELIAL CELLS RARE /HPF; HYALINE CASTS 0-5 /LPF; MUCUS NONE SEEN /LPF; RED BLOOD CELLS 0-5 /HPF (0-5); UCUL ADDED? NO; WHITE BLOOD CELLS 0-5 /HPF (0-5)
[2017-03-19 02:09] VITALS: BP 164/85
== END 2017-03-19 02:11 | disposition hospice, home (50) ==
LOC: EME 17:41
PROVIDERS: Emergency Medicine
DX: G40.909 Epilepsy, unspecified, not intractable, without status epilepticus (principal); E87.6 Hypokalemia; E83.42 Hypomagnesemia; I10 Essential (primary) hypertension; I25.2 Old myocardial infarction; E78.5 Hyperlipidemia, unspecified; J44.9 Chronic obstructive pulmonary disease, unspecified; M10.9 Gout, unspecified; Z79.01 Long term (current) use of anticoagulants; F41.9 Anxiety disorder, unspecified; Z88.8 Allergy status to other drugs, medicaments and biological substances; Z85.9 Personal history of malignant neoplasm, unspecified
CPT/HCPCS: 70450; 71045; 80053; 81003; 82550; 82553; 83735; 84484; 85025; 85610; 85730; 93005; J3475; J7030